=== PATIENT | male | born 1975 | race American Indian/Alaskan Native ===

== ENCOUNTER 2017-10-15 17:13 | Emergency (ER) | payer OTHER ==
[2017-10-15 17:59] VITALS: BP 123/87
[2017-10-15] MEDS ORDERED: MOTRIN PO ONE (19:29)
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
== END 2017-10-15 22:27 | disposition home or self-care (01) ==
LOC: ED 17:13
DX: S13.4XXA Sprain of ligaments of cervical spine, initial encounter (principal); S39.012A Strain of muscle, fascia and tendon of lower back, initial encounter; V89.2XXA Person injured in unspecified motor-vehicle accident, traffic, initial encounter; Y93.89 Activity, other specified; Y92.488 Other paved roadways as the place of occurrence of the external cause; Y99.8 Other external cause status
CPT/HCPCS: 72040; 72100; 99283